=== PATIENT | female | born 1990 | race Caucasian/White ===

== ENCOUNTER 2016-11-05 21:28 | Emergency (ER) | payer OTHER ==
[~2016-11-05] VITALS: Ht 160 cm; Wt 76.0 kg
[~2016-11-05 21:28] MED LIST: CITRATE OF MAG296 ML PO; FEOSOL325 MG PO; IMITREX100 MG PO; MOTRIN800 MG PO; NAPROSYN500 MG PO; NATALCARE RX1 TABLE1 PO; NOHOMEMEDS; OCUFLOX 0.100 DROP/5 LEFT EYE; PHENERGAN12.5 M1 PO; PROMETHAZINE HC25 M1 PO; TOPAMAX25 MG PO
[2016-11-05 21:43] LABS: HEMATOCRIT 37.3 % (36.0-46.0); MCV 85.2 FL (83-99); MEAN PLAT.VOLUME 10.1 uM^3 (9.5-12.4); PLATELET COUNT 310 K/uL (156-360); RBC DIS.WIDTH-CV 13.2 % (11.8-14.6); RBC DIS.WIDTH-SD 40.7 % (39-53); RED BLOOD COUNT 4.38 M/uL (3.80-5.20); WHITE BLOOD COUNT 16.7 K/uL (4.1-10.2)
[2016-11-05 21:53] LABS: CHLORIDE 106 mEq/L (99-109); POTASSIUM 3.8 mEq/L (3.7-5.4); SODIUM 140 mEq/L (136-147)
[2016-11-05 21:56] LABS: GLUCOSE 99 mg/dL (70-99)
[2016-11-05 21:57] LABS: ANION GAP 10 MEQ/L (2-14)
[2016-11-05 21:58] LABS: TOTAL BILIRUBIN 0.4 mg/dL (0.0-1.0)
[2016-11-05 21:59] LABS: ALKALINE PHOSPHATASE 53 IU/L (3-129); GFR ESTIMATE (CALCULATED) > 59 mL/min/
[2016-11-05 22:00] LABS: UREA NITROGEN (BUN) 16 mg/dL (9-23)
[2016-11-05 22:08] LABS: QUANTITATIVE HCG < 4.0 MIU/ML
[2016-11-05 22:21] LABS: BILIRUBIN NEGATIVE; BLOOD NEGATIVE; COLOR YELLOW ((YELLOW)); GLUCOSE (STRIP) NEGATIVE; KETONES NEGATIVE; LEUKOCYTES NEGATIVE; NITRITE NEGATIVE; PROTEIN (STRIP) NEGATIVE; SPECIFIC GRAVITY 1.009 (1.000-1.030)
[2016-11-05 22:25] LABS: ADD MIUA? NO; UCUL ADDED? NO
[2016-11-05 22:29] LABS: TROP-I INTERPRETATION NEGATIVE; TROPONIN-I < 0.01 ng/mL (0.0-0.30)
[2016-11-05] MEDS ORDERED: FLAGYL500 MG PO (23:08)
[2016-11-05] MEDS ORDERED: CIPRO500 MG PO (23:08)
[2016-11-05] MEDS ORDERED: ZOFRAN4 MG PO (23:08)
[2016-11-05 23:27] VITALS: BP 118/88
== END 2016-11-05 23:32 | disposition home or self-care (01) ==
LOC: EME 21:28
DX: K52.9 Noninfective gastroenteritis and colitis, unspecified (principal)
CPT/HCPCS: 71020; 74176; 80053; 81003; 84484; 84702; 85027; 93005; 99281; 99284; J7030